=== PATIENT | male | born 2000 | race Caucasian/White ===

== ENCOUNTER 2019-12-05 06:57 | Outpatient (NON) | payer OTHER, SELFPAY ==
[2019-12-05 23:41] LABS: SARS-CoV-2 RNA PCR Negative
== END 2019-12-05 06:58 ==
PROVIDERS: Visit Provider Internal Medicine
DX: Z20.828 Contact with and (suspected) exposure to other viral communicable diseases (principal); R68.89 Other general symptoms and signs
CPT/HCPCS: 87635; C9803; U0003

== ENCOUNTER 2020-02-05 09:21 | Outpatient (CLI) | payer OTHER, SELFPAY ==
--- NOTE | ~2020-02-05 | MR_ITS ---
EXAMINATION: MR brain/brain stem wo/w con DATE: 02/05/2020 10:49 INDICATION: Prolactinoma. TECHNIQUE: Magnetic resonance imaging (MRI) of the brain and brainstem was performed without and with 14 mL MultiHance intravenous contrast. Whole-brain sequences included sagittal T1-weighted FSE, axia l diffusion-weighted FS EPI, axial T2*-weighted GRE, axial T2-weighted FLAIR Propeller, and axial T2- weighted Propeller. Small rwanc-nm-ckfe sequences included sagittal and coronal T1-weighted FSE cente red at the pituitary. Postcontrast sequences included small ksihy-ia-barn coronal T1-weighted FSE in a time course and sagittal T1-weighted FSE and whole-brain axial T1-weighted FSE. Apparent diffusion coefficient (ADC) maps were created. COMPARISON: Brain MRI 08/15/2018, 08/13/2018 FINDINGS: The pituitary is normal in size with height of 7 mm and concave superior margin. There is n o intracranial hemorrhage, acute infarction, or abnormal intracranial mass lesion. The ventricles are normal in size. The orbits are normal. There is a mucous retention cyst in right maxillary sinus. T he mastoid air cells are normal. IMPRESSION: 1. Normal pituitary with interval decrease in size. The previously seen pituitary mass is no longer v isualized. Reviewed, dictated and finalized at location [facility]. IMPRESSION: 1. Normal pituitary with interval decrease in size. The previously seen pituita ry mass is no longer visualized.
[2020-02-05 09:46] LABS: Estimated Glomerular Filt Rate > 60
== END 2020-02-05 09:22 | disposition home or self-care (01) ==
LOC: ANHIMG 09:22
PROVIDERS: PCP Internal Medicine
DX: D35.2 Benign neoplasm of pituitary gland (principal)
CPT/HCPCS: 70553; A9577

== ENCOUNTER 2022-09-30 23:00 | Emergency (ER) | payer OTHER, SELFPAY ==
[2022-09-30 23:14] VITALS: BP 134/74; PULSE 72; RESP 18; TEMP 37; O2SAT 99
--- NOTE | 2022-09-30 23:23 | ED.GENADULT ---
HPI - General Adult General Chief complaint: Urogenital-Male Stated complaint: blood in urine Time Seen by Provider: 09/30/22 23:11 Source: patient Mode of arrival: ambulatory Limitations: no limitations History of Present Illness HPI narrative: This is a 22-year-old male who presents to the ED with chief complaint of hematuria and dysuria onset today. Patient states that he had some fevers and chills a few days ago but these have since resolved. Today he states in the last few hours he has noticed some pain while urinating. Describes it as irritation and burning. Denies any discharge. Denies any testicular pain or swelling. Denies any flank pain, abdominal pain, nausea, vomiting, problems with bowel movements. He does not have specific concern for STD states it is possible. Related Data Allergies Allergy/AdvReac Type Severity Reaction Status Date / Time No Known Allergies Allergy Unverified 09/30/22 23:01 Review of Systems Review of Systems: CONSTITUTIONAL: Denies fever, chills, or sweats. EYES: Denies visual changes, redness, or discharge. ENT: Denies rhinorrhea, congestion, sore throat, or otalgia. CARDIOVASCULAR: Denies chest pain, palpitations, or edema. RESPIRATORY: Denies cough or dyspnea. GASTROINTESTINAL: Denies abdominal pain, nausea, vomiting, or diarrhea. GENITOURINARY: See HPI SKIN: Denies rash or itching. MUSCULOSKELETAL: Denies back pain, joint pain, or myalgia. NEUROLOGIC: Denies headache, numbness, dizziness, or weakness. PSYCHIATRIC: Denies anxiety or depression. [facility] Family History Family History (Updated 08/12/18 @ 08:43 by DOCTOR UNKNOWN) Father Depression Hypertension Patient's father is in good health Mother Depression Patient's mother is in good health Social History Social History Smoking status: Never smoker Alcohol intake: never Exam Narrative: GENERAL: Well-appearing, well-nourished, and in no acute distress. Resting comfortably. HEAD: Normocephalic, atraumatic. EYES: PERRLA and EOMI. ENT: Nares clear, no rhinorrhea or epistaxis. Mucous membranes moist. Oropharynx without tonsillar hypertrophy exudate or other lesions. NECK: Supple. No adenopathy or masses. CHEST: No respiratory distress. Clear to auscultation. No wheezes rales or rhonchi HEART: Regular rate and rhythm. No murmur heard. Normal peripheral pulses. ABDOMEN: Negative flank tenderness. Soft, nontender, nondistended, normal active bowel sounds. MSK: Normal range of motion. No edema. SKIN: Warm, dry, no rash. NEURO: Alert and oriented x3. No focal deficits. PSYCH: Normal mood and affect. Course Vital Signs Vital signs: Vital Signs Temperature 98.6 F 09/30/22 23:14 Pulse Rate 72 09/30/22 23:14 Respiratory Rate 18 09/30/22 23:14 Blood Pressure 134/74 09/30/22 23:14 Pulse Oximetry 99 09/30/22 23:14 Temperature 98.6 F 09/30/22 23:14 Pulse Rate 78 10/01/22 01:28 Respiratory Rate 18 10/01/22 01:28 Blood Pressure 127/78 10/01/22 01:28 Pulse Oximetry 99 10/01/22 01:28 Medical Decision Making MDM Narrative Medical decision making narrative: This is a 22-year-old male who presents to the ED with chief complaint of hematuria and dysuria for the past few hours. Vitals are normal. Exam is benign. UA shows 2+ protein, 3+ blood, 2+ leuk esterase and greater than 100 white blood cells. Urine G&C was sent. Urine culture sent. CBC and CMP are unremarkable. Prophylactic treatment for STDs today. Doxy sent to his pharmacy. Stable condition for discharge. Patient is understanding and agreeable with plan for discharge and follow-up with PCP. Return precautions given and supportive measures discussed. Vital Signs Vital Signs: Vital Signs Temperature 98.6 F 09/30/22 23:14 Pulse Rate 72 09/30/22 23:14 Respiratory Rate 18 09/30/22 23:14 Blood Pressure 134/74 09/30/22 23:14 Pulse Oximetry 99 09/30/22 23:14 Temperature 98.6
[2022-09-30 23:29] LABS: Appearance Urine Cloudy (Clear); Bacteria Urine None Seen /hpf; Bilirubin Urine Negative (Negative); Blood Urine 3+ (Negative); Color Urine Yellow (Yellow); Glucose Urine UA Negative (Negative); Ketones Urine Negative (Negative); Leukocyte Esterase Ur 2+ LEU/UL (Negative); Nitrate Urine Negative (Negative); Non Pathogenic Casts 0-2; Protein Urine 2+ mg/dL (Negative); RBC Urine >100 /hpf (0-2); Specific Grav Ur 1.012 (1.001-1.035); Squamous Epithelial Cell Urine None seen /hpf (Few); WBC Urine >100 /hpf
[2022-09-30 23:43] LABS: Add Urine Microscopic? YES
[2022-10-01 00:21] LABS: Basophils Percent Auto 0.3 % (0.2-1.2); Eosinophils Absolute Auto 0.2 K/mm3 (0-0.3); Eosinophils Percent Auto 1.7 % (0-4.4); Hemoglobin 12.9 g/dL (14.0-18.0); Immature Granulocyte Absolute 0.03 K/mm3 (0.00-0.031); Immature Granulocyte Percent A 0.3 % (0-0.5); Lymphocytes Absolute Auto 1.73 K/mm3 (0.9-3.2); Lymphocytes Percent Auto 17.4 % (18.3-44.2); Mean Corpuscular HGB Conc 33.9 g/dl (32-36); Mean Corpuscular Hemoglobin 30.4 pg (26-34); Mean Corpuscular Volume 89.4 fl (80-100); Mean Platelet Volume 10.6 fl (7.4-10.4); Monocytes Absolute Auto 0.9 K/mm3 (0.1-0.6); Monocytes Percent Auto 8.7 % (2.6-8.5); Neutrophils Absolute Auto 7.1 K/mm3 (1.3-6.7); Neutrophils Percent Auto 71.6 % (45.5-73.1); Platelet Count Result 201 k/mm3 (150-375); Red Blood Count 4.25 M/mm3 (4.6-6.20); Red Cell Distribution Width 12.5 % (11.5-14.5)
[2022-10-01 00:26] LABS: Alanine Aminotransferase 32 U/L (6-50); Albumin Level 4.3 g/dL (3.5-5.1); Alkaline Phosphatase 86 U/L (38-126); Anion Gap 8 mmol/L (8-16); Aspartate Amino Transferase 34 U/L (17-59); Bilirubin,Total 0.4 mg/dL (0.2-1.3); Blood Urea Nitrogen 15 mg/dL (9-20); Calcium 8.6 mg/dL (8.4-10.2); Carbon Dioxide 26 mmol/L (22-30); Chloride 105 mmol/L (98-107); Estimated CRCL calculation 87 ml/min; Estimated Glomerular Filt Rate > 60; Glucose 128 mg/dL (65-110); Potassium 3.7 mmol/L (3.4-5.0); Sodium 139 mmol/L (137-145)
[2022-10-01] MEDS: cefTRIAXone 1 GM VIAL 0.5 GM IM (01:15)
[2022-10-01] MEDS: ONDANSETRON HCL ODT 4 MG TABLET PO (01:16)
[2022-10-01] MEDS: metroNIDAZOLE 250 MG TABLET 2000 MG PO (01:16)
[2022-10-01 01:28] VITALS: BP 127/78; PULSE 78; RESP 18; O2SAT 99
== END 2022-10-01 01:29 | disposition home or self-care (01) ==
PROVIDERS: Emergency Medicine; Emergency Provider Physician Assistant; PCP Internal Medicine
DX: N39.0 Urinary tract infection, site not specified (principal); Z11.3 Encounter for screening for infections with a predominantly sexual mode of transmission
CPT/HCPCS: 36415; 80053; 81001; 85025; 87077; 87086; 87186; 87491; 87591; 96372; 99283; A9270; J0696

== ENCOUNTER 2022-12-14 06:39 | Outpatient (CLI) | payer OTHER, SELFPAY ==
--- NOTE | ~2022-12-14 | MR_ITS ---
MRI of the brain Clinical History: Prolactinoma Technique: Axial and sagittal T1-weighted images were acquired. These were followed by axial T2-weigh soraida, diffusion weighted, gradient, and FLAIR images. Following intravenous administration of 15 cc Mu ltiHance gadolinium, T1-weighted fat-sat imaging was performed through the brain in the axial plane. Dynamic coronal T1-weighted postcontrast imaging was performed through the sella turcica. Comparison: 02/05/2020 Findings: No abnormal signal seen in the brain parenchyma. No acute infarct, intracranial hemorrhage, mass lesion. Ventricles are spaces are unremarkable. Orbits are unremarkable. Paranasal sinuses and mastoid air ce lls are clear. Major intracranial flow voids are intact. Sagittal midline structures appear intact. Particular, no sellar/suprasellar mass identified. No pitu itary lesion identified. No abnormal enhancement identified. IMPRESSION: Unremarkable exam. No pituitary mass seen. Reviewed, dictated and finalized at [facility].
== END 2022-12-14 06:40 | disposition home or self-care (01) ==
PROVIDERS: PCP Internal Medicine; Visit Provider Internal Medicine Endocrinology, Diabetes & Metabolism
DX: D35.2 Benign neoplasm of pituitary gland (principal)
CPT/HCPCS: 70553; A9577